=== PATIENT | male | born 1940 | race Caucasian/White ===

== ENCOUNTER 2016-11-06 20:33 | Emergency (ER) | payer MEDICARE ==
[~2016-11-06] VITALS: Ht 170.2 cm; Wt 77.0 kg
[2016-11-06] MEDS ORDERED: IV NORMAL SALINE 500ML 500 ML IV ONE (20:45)
[2016-11-06 21:05] LABS: BASO # 0.1 x10^3/uL (0.0-0.2); BASO % 1 % (0-3); EOS # 0.1 x10^3/uL (0.0-0.7); EOS % 2 % (0-3); HEMATOCRIT 42.6 % (39.0-53.0); HEMOGLOBIN 14.6 g/dL (13.0-17.5); LYMPH # 2.9 x10^3/uL (1.0-4.8); LYMPH % 38 % (24-48); MEAN CORPUSCULAR HEMOGLOBIN 29 pg (25-35); MEAN CORPUSCULAR HGB CONC 34 g/dL (31-37); MEAN CORPUSCULAR VOLUME 84 fL (79-100); MONO # 0.6 x10^3/uL (0.0-1.1); MONO % 8 % (0-9); NEUT # 3.9 x10^3uL (1.8-7.7); NEUT % 51 % (31-73); PLATELET COUNT 245 x10^3/uL (140-400); RED BLOOD COUNT 5.05 x10^6/uL (4.30-5.70); RED CELL DISTRIBUTION WIDTH 14.8 % (11.5-14.5); WHITE BLOOD COUNT 7.7 x10^3/uL (4.0-11.0)
--- NOTE | 2016-11-06 21:21 | RAD ---
CT HEAD AND CERVICAL SPINE WO dated 11/06/2016 8:54 PM Indication: Fall, headacheCODE STROKE, FALL, HYPERTENSION, SEVERE HEADACHE, ON BLOOD THINNERS, history of prior CVA Comparison: No comparison is available. Technique: Contiguous axial imaging the head was performed from skull base to vertex. No contrast administered. In addition, axial imaging of the cervical spine acquired with thin cut coronal and sagittal reconstruction. One or more of the following individualized dose reduction techniques were utilized for this examination: 1. Automated exposure control 2. Adjustment of the mA and/or kV according to patient size 3. Use of iterative reconstruction technique Findings: Ventricles and sulci are mildly prominent for age. No midline shift or mass effect. Brain parenchyma is of normal attenuation. No hemorrhage or extra axial collection. Posterior fossa and brainstem unremarkable. Visualized paranasal sinuses and mastoid air cells are clear. No apparent calvarial abnormality. Images of the cervical spine were acquired from skull base to T1. There is mild retrolisthesis of C3 on C4. Sagittal alignment is otherwise anatomic. Vertebral body heights are maintained. No prevertebral soft tissue swelling. Posterior elements are intact. There moderate hypertrophic change of the superior and inferior endplates throughout. Mild disc space narrowing at C3-C4 and C5-C6. Multilevel uncovertebral spurring and facet arthropathy. There is moderate bilateral foraminal stenosis at the C3-C4 level. Mild foraminal narrowing at the lower cervical levels. No large disc herniation. Visualized soft tissue structures unremarkable. Mild emphysematous change of the lung apices. IMPRESSION HEAD: 1. No evidence of acute intracranial hemorrhage or mass. 2. No CT evidence of acute infarct. If there is persistent clinical concern for evolving infarct, MRI could better evaluate. Impression cervical spine: 1. No evidence of fracture or malalignment. 2. Mild to moderate multilevel spondylosis. Electronically signed by: Mikel Hearn MD (11/06/2016 9:18 PM) [facility]
[2016-11-06 21:25] LABS: ALBUMIN 3.8 g/dL (3.4-5.0); CALCIUM 8.5 mg/dL (8.5-10.1); CREATININE 1.1 mg/dL (0.7-1.3); DIRECT BILIRUBIN 0.1 mg/dL (0.0-0.2); GFR 65.4; POTASSIUM 3.4 mmol/L (3.5-5.1); TOTAL BILIRUBIN 0.3 mg/dL (0.2-1.0); TOTAL PROTEIN 7.3 g/dL (6.4-8.2)
[2016-11-06 21:32] LABS: BILIRUBIN,URINE NEG (NEG); CLARITY,URINE CLEAR; COLOR,URINE YELLOW; GLUCOSE,URINE NEG (NEG); NITRITE,URINE NEG (NEG); UROBILINOGEN,URINE 0.2 mg/dL (0.2 mg/dL)
[2016-11-06 21:33] LABS: BACTERIA,URINE 0 /HPF (0-FEW); SQUAMOUS EPITHELIAL CELL,UR MOD /LPF
[2016-11-07 00:02] VITALS: BP 154/65
--- NOTE | 2016-11-07 00:27 | PHYS DOC ---
Past History Past Medical History: Anxiety, Asthma, CAD, COPD, Depression, High Cholesterol , Hypertension, [place], Prostatitis, Stroke Past Surgical History: Appendectomy Drug Use: None Adult General Chief Complaint Chief Complaint: HYPERTENSION HPI HPI 76-year-old male presenting to the emergency department after having a mechanical fall while trying to straight catheter himself and injuring his right elbow. He denies head injury or head trauma. He is currently on anticoagulation. He denies chest pain abdominal pain or hip pain. He was reportedly able to ambulate after the fall. Review of systems is negative for vision changes numbness weakness tingling difficulty breathing chest pain shortness of breath abdominal pain nausea vomiting. He denies polyuria dysuria. He reports chronic hypertension. All other review of systems is negative unless otherwise noted in history of present illness. ED course: 76-year-old male presenting to the emergency department with high blood pressure and a mechanical fall with injury to his right elbow. Pertinent physical examination findings showed no abrasions lacerations or ecchymosis of the right elbow. Patient has minimal pain with passive range of motion of the elbow. Palpable pulse distally with 2 second cap refill. General workup obtained which was otherwise unremarkable. I reviewed the elbow x-ray which showed mild effusion but was without obvious fracture. Patient did have anterior fat pad sign. Occult radial fracture suspected. Reexamination of the elbow shows very minimal pain and clinically is not suggestive of fracture. The patient was then discharged home to follow-up with his primary care physician in 2-3 days for repeat elbow examination and chronic hypertension management. Review of Systems Review of Systems SEE ABOVE Current Medications Current Medications Current Medications Medications (Trade) Dose Ordered Sig/Rui Start Time Stop Time Status Last Admin Dose Admin Sodium Chloride 500 ml @ 0 mls/hr 1X ONCE 11/06/16 20:45 11/06/16 20:51 DC 11/06/16 20:45 100 MLS/HR Allergies Allergies Allergies Coded Allergies Type Severity Reaction Last Updated Verified No Known Drug Allergies 11/06/16 No Physical Exam Physical Exam see above Constitutional: Well developed, well nourished, no acute distress, non-toxic appearance. [] HENT: Normocephalic, atraumatic, bilateral external ears normal, oropharynx moist, no oral exudates, nose normal. [] Eyes: PERRLA, EOMI, conjunctiva normal, no discharge. [] Neck: Normal range of motion, no tenderness, supple, no stridor. [] Cardiovascular:Heart rate regular rhythm, no murmur [] Lungs & Thorax: Bilateral breath sounds clear to auscultation [] Abdomen: Bowel sounds normal, soft, no tenderness, no masses, no pulsatile masses. [] Skin: Warm, dry, no erythema, no rash. [] Back: No tenderness, no CVA tenderness. [] Extremities: No tenderness, no cyanosis, no clubbing, ROM intact, no edema. [] see above Neurologic: Alert and oriented X 3, normal motor function, normal sensory function, no focal deficits noted. [] Psychologic: Affect normal, judgement normal, mood normal. [] Current Patient Data Vital Signs Vital Signs Date Time Temp Pulse Resp B/P (MAP) Pulse Ox O2 Delivery O2 Flow Rate FiO2 11/06/16 20:33 98.1 80 28 99 Room Air Lab Results Laboratory Tests Test 11/06/16 20:17 11/06/16 20:41 Urine Collection Type Unknown Urine Color Yellow Urine Clarity Clear Urine pH 5.5 Urine Specific [place] 1.020 Urine Protein Neg (NEG-TRACE) Urine Glucose (UA) Neg mg/dL (NEG) Urine Ketones (Stick) Neg mg/dL (NEG) Urine Blood Neg (NEG) Urine Nitrite Neg (NEG) Urine Bilirubin Neg (NEG) Urine Urobilinogen Dipstick 0.2 mg/dL (0.2 mg/dL) Urine Leukocyte Esterase Neg (NEG) Urine RBC 3-5 /HPF (0-2) Urine WBC 1-4 /HPF (0-4) Urine Squamous Epithelial Cells Mod /LPF Urine Bacteria 0 /HPF (0-FEW) Urine Mucus Mod /LPF White Blood Count 7.7 x10^3/uL (4.0-11.0) Red Blood Count 5.05 x10^6/uL (4.30-5.70) Hemoglobin 14.6 g/dL (13.0-17.5) Hematocrit 42.6 % (39.0-53.0) Mean Corpuscular Volume 84 fL (79-100) Mean Corpuscular Hemoglobin 29 pg (25-35) Mean Corpuscular Hemoglobin Concent 34 g/dL (31-37) Red Cell Distribution Width 14.8 % (11.5-14.5) H Platelet Count 245 x10^3/uL (140-400) Neutrophils (%) (Auto) 51 % (31-73) Lymphocytes (%) (Auto) 38 % (24-48) Monocytes (%) (Auto) 8 % (0-9) Eosinophils (%) (Auto) 2 % (0-3) Basophils (%) (Auto) 1 % (0-3) Neutrophils # (Auto) 3.9 x10^3uL (1.8-7.7) Lymphocytes # (Auto) 2.9 x10^3/uL (1.0-4.8) Monocytes # (Auto) 0.6 x10^3/uL (0.0-1.1) Eosinophils # (Auto) 0.1 x10^3/uL (0.0-0.7) Basophils # (Auto) 0.1 x10^3/uL (0.0-0.2) Sodium Level 139 mmol/L (136-145) Potassium Level 3.4 mmol/L (3.5-5.1) L Chloride Level 102 mmol/L (98-107) Carbon Dioxide Level 28 mmol/L (21-32) Anion Gap 9 (6-14) Blood Urea Nitrogen 10 mg/dL (8-26) Creatinine 1.1 mg/dL (0.7-1.3) Estimated GFR (Cockcroft-Gault) 65.4 Glucose Level 107 mg/dL (70-99) H Lactic Acid Level 2.0 mmol/L (0.4-2.0) Calcium Level 8.5 mg/dL (8.5-10.1) Total Bilirubin 0.3 mg/dL (0.2-1.0) Direct Bilirubin 0.1 mg/dL (0.0-0.2) Aspartate Amino Transferase (AST) 14 U/L (15-37) L Alanine Aminotransferase (ALT) 15 U/L (16-63) L Alkaline Phosphatase 89 U/L (46-116) Troponin I Quantitative < 0.017 ng/mL (0-0.055) Total Protein 7.3 g/dL (6.4-8.2) Albumin 3.8 g/dL (3.4-5.0) Lipase 126 U/L (73-393) EKG EKG [] Radiology/Procedures Radiology/Procedures [] Course & Med Decision Making Course & Med Decision Making Pertinent Labs and Imaging studies reviewed. (See chart for details) [] Dragon Disclaimer Dragon Disclaimer This chart was dictated in whole or in part using Voice Recognition software in a busy, high-work load, and often noisy Emergency Department environment. It may contain unintended and wholly unrecognized errors or omissions. Departure Departure: Impression: Primary Impression: Hypertension Additional Impression: Right elbow pain Disposition: HOME, SELF-CARE Condition: GUARDED Referrals: NON,STAFF (PCP) Patient Instructions: Managing Your High Blood Pressure Additional Instructions: Thank you for allowing us to participate in your care today. Followup with your primary care physician in 3 days if your symptoms do not improve. Call your Primary Doctor tomorrow and inform them of your visit today. If you do not have a primary care provider you can ask for a list of our primary care providers. Return to the emergency department you have any new or concerning findings. This should be evaluated by the primary care physician and any necessary consulting services for continued management within a few days after discharge. Return to emergency room if you have any new or concerning symptoms including but not limited to fever, chills, nausea, vomiting, intractable pain, any new rashes, chest pain, shortness of air, uncontrolled bleeding, difficulty breathing, and/or vision loss. Problem Qualifiers TEOFILO BYRD MD Nov 07, 2016 00:26
--- NOTE | 2016-11-07 02:27 | PHYS DOC ---
Past History Past Medical History: Anxiety, Asthma, CAD, COPD, Depression, High Cholesterol , Hypertension, [place], Prostatitis, Stroke Past Surgical History: Appendectomy Drug Use: None Adult General Chief Complaint Chief Complaint: HYPERTENSION HPI HPI Patient is a [age] year old [sex] who presents with [] Current Medications Current Medications Current Medications Medications (Trade) Dose Ordered Sig/Rui Start Time Stop Time Status Last Admin Dose Admin Sodium Chloride 500 ml @ 0 mls/hr 1X ONCE 11/06/16 20:45 11/06/16 20:51 DC 11/06/16 20:45 100 MLS/HR Allergies Allergies Allergies Coded Allergies Type Severity Reaction Last Updated Verified No Known Drug Allergies 11/06/16 No Current Patient Data Vital Signs Vital Signs Date Time Temp Pulse Resp B/P (MAP) Pulse Ox O2 Delivery O2 Flow Rate FiO2 11/06/16 20:33 98.1 80 28 99 Room Air Lab Results Laboratory Tests Test 11/06/16 20:17 11/06/16 20:41 Urine Collection Type Unknown Urine Color Yellow Urine Clarity Clear Urine pH 5.5 Urine Specific [place] 1.020 Urine Protein Neg (NEG-TRACE) Urine Glucose (UA) Neg mg/dL (NEG) Urine Ketones (Stick) Neg mg/dL (NEG) Urine Blood Neg (NEG) Urine Nitrite Neg (NEG) Urine Bilirubin Neg (NEG) Urine Urobilinogen Dipstick 0.2 mg/dL (0.2 mg/dL) Urine Leukocyte Esterase Neg (NEG) Urine RBC 3-5 /HPF (0-2) Urine WBC 1-4 /HPF (0-4) Urine Squamous Epithelial Cells Mod /LPF Urine Bacteria 0 /HPF (0-FEW) Urine Mucus Mod /LPF White Blood Count 7.7 x10^3/uL (4.0-11.0) Red Blood Count 5.05 x10^6/uL (4.30-5.70) Hemoglobin 14.6 g/dL (13.0-17.5) Hematocrit 42.6 % (39.0-53.0) Mean Corpuscular Volume 84 fL (79-100) Mean Corpuscular Hemoglobin 29 pg (25-35) Mean Corpuscular Hemoglobin Concent 34 g/dL (31-37) Red Cell Distribution Width 14.8 % (11.5-14.5) H Platelet Count 245 x10^3/uL (140-400) Neutrophils (%) (Auto) 51 % (31-73) Lymphocytes (%) (Auto) 38 % (24-48) Monocytes (%) (Auto) 8 % (0-9) Eosinophils (%) (Auto) 2 % (0-3) Basophils (%) (Auto) 1 % (0-3) Neutrophils # (Auto) 3.9 x10^3uL (1.8-7.7) Lymphocytes # (Auto) 2.9 x10^3/uL (1.0-4.8) Monocytes # (Auto) 0.6 x10^3/uL (0.0-1.1) Eosinophils # (Auto) 0.1 x10^3/uL (0.0-0.7) Basophils # (Auto) 0.1 x10^3/uL (0.0-0.2) Sodium Level 139 mmol/L (136-145) Potassium Level 3.4 mmol/L (3.5-5.1) L Chloride Level 102 mmol/L (98-107) Carbon Dioxide Level 28 mmol/L (21-32) Anion Gap 9 (6-14) Blood Urea Nitrogen 10 mg/dL (8-26) Creatinine 1.1 mg/dL (0.7-1.3) Estimated GFR (Cockcroft-Gault) 65.4 Glucose Level 107 mg/dL (70-99) H Lactic Acid Level 2.0 mmol/L (0.4-2.0) Calcium Level 8.5 mg/dL (8.5-10.1) Total Bilirubin 0.3 mg/dL (0.2-1.0) Direct Bilirubin 0.1 mg/dL (0.0-0.2) Aspartate Amino Transferase (AST) 14 U/L (15-37) L Alanine Aminotransferase (ALT) 15 U/L (16-63) L Alkaline Phosphatase 89 U/L (46-116) Troponin I Quantitative < 0.017 ng/mL (0-0.055) Total Protein 7.3 g/dL (6.4-8.2) Albumin 3.8 g/dL (3.4-5.0) Lipase 126 U/L (73-393) EKG EKG [] Radiology/Procedures Radiology/Procedures [] Course & Med Decision Making Course & Med Decision Making Pertinent Labs and Imaging studies reviewed. (See chart for details) [] Dragon Disclaimer Dragon Disclaimer This chart was dictated in whole or in part using Voice Recognition software in a busy, high-work load, and often noisy Emergency Department environment. It may contain unintended and wholly unrecognized errors or omissions. Departure Departure: Impression: Primary Impression: Hypertension Additional Impression: Right elbow pain Referrals: NON,STAFF (PCP) Problem Qualifiers TEOFILO BYRD MD Nov 07, 2016 02:27
--- NOTE | 2016-11-07 06:21 | EKG ---
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
--- NOTE | 2016-11-07 09:20 | RAD ---
Examination: 3 views of the right elbow History: History of fall, right elbow pain. Comparison: None available Findings: The alignment of the elbow joint grossly appears unremarkable. There is minimal prominent appearing anterior fat pad sign. An obvious fracture line is not visualized. Impression: 1. No obvious fracture line is identified, however there is minimal prominent of anterior fat pad sign which may suggest occult fracture. Recommend follow-up radiograph in 5-7 days.
--- NOTE | 2016-11-07 09:27 | RAD ---
EXAM: CHEST 1 VIEW History: Fall COMPARISON: None available. TECHNIQUE: Single portable radiograph of the chest FINDINGS: The cardiac silhouette is unremarkable. The lungs are clear bilaterally. Minimal blunting of the right costophrenic angle likely pleural thickening or trace effusion. IMPRESSION: Minimal blunting of the right costophrenic angle likely pleural thickening or trace effusion.
== END 2016-11-07 00:34 | disposition home or self-care (01) ==
LOC: ER 20:33
DX: M25.521 Pain in right elbow (principal); I10 Essential (primary) hypertension; E78.00 Pure hypercholesterolemia, unspecified; I25.10 Atherosclerotic heart disease of native coronary artery without angina pectoris; J44.9 Chronic obstructive pulmonary disease, unspecified; I25.2 Old myocardial infarction; Z86.73 Personal history of transient ischemic attack (TIA), and cerebral infarction without residual deficits; W19.XXXA Unspecified fall, initial encounter; Y93.89 Activity, other specified; Y99.8 Other external cause status; Y92.89 Other specified places as the place of occurrence of the external cause
CPT/HCPCS: 36415; 70450; 71010; 72125; 73080; 80048; 80076; 81001; 83605; 83690; 84484; 85025; 93005; 96360; 96361; 99285; J7040; P9612

== ENCOUNTER 2017-12-14 13:54 | Observation (INO) | payer MEDICARE, OTHER ==
[~2017-12-14] VITALS: Ht 171.4 cm; Wt 70.4 kg
--- NOTE | 2017-12-14 14:16 | RAD ---
CT of the head without contrast, 12/14/2017: HISTORY: Left-sided weakness Comparison is made to a study from 11/06/2016. There is mild cerebral atrophy. The ventricles are within normal limits in size. There is no shift of the midline structures. There is no evidence of acute intracranial hemorrhage or mass effect. IMPRESSION: No acute intracranial abnormality is detected. Note: The findings were called to personnel in the [facility] ER at 2:12 PM on 12/14/2017. Electronically signed by: Baltazar Pierre MD (12/14/2017 2:12 PM) [facility]
[2017-12-14 14:34] LABS: HEMATOCRIT 44.3 % (39.0-53.0); HEMOGLOBIN 15.1 g/dL (13.0-17.5); RED BLOOD COUNT 5.15 x10^6/uL (4.30-5.70); RED CELL DISTRIBUTION WIDTH 14.3 % (11.5-14.5); WHITE BLOOD COUNT 6.5 x10^3/uL (4.0-11.0)
--- NOTE | 2017-12-14 14:35 | PHYS DOC ---
Past History Past Medical History: Anxiety, Asthma, CAD, COPD, Depression, High Cholesterol , Hypertension, [place], Prostatitis, Stroke Past Surgical History: Appendectomy Alcohol Use: Occasionally Drug Use: None Adult General Chief Complaint Chief Complaint: NEURO SYMPTOMS/DEFICITS [facility] HPI 77-year-old male presents via EMS for concern of stroke. Patient was at his care facility eating some lunch when he began to have a choking episode. The last thing he remembers until he woke up on the floor. EMS was called by the person cleaning his home who witnessed the choking and syncopal event. When he woke up the patient states that the cleaning lady was very upset and wanted him checked out. He doesn't remember much besides this. EMS found the patient to have left-sided weakness. Patient states that he has had a previous stroke with left-sided weakness but is not sure if weakness is worse today or not. He is usually ambulatory. He admits to a tingling sensation with feels like his arm was going to sleep on the left arm. He denies any difficulty with word finding or understanding people are saying. He denies fever or chills. Review of Systems Review of Systems Constitutional: Denies fever or chills [] Eyes: Denies change in visual acuity, redness, or eye pain [] HENT: Denies nasal congestion or sore throat [] Respiratory: Denies cough or shortness of breath [] Cardiovascular: No additional information not addressed in HPI [] GI: Denies abdominal pain, nausea, vomiting, bloody stools or diarrhea [] : Denies dysuria or hematuria [] Musculoskeletal: Denies back pain or joint pain [] Integument: Denies rash or skin lesions [] Neurologic: Mild headache, left-sided weakness[] Endocrine: Denies polyuria or polydipsia [] All other systems were reviewed and found to be within normal limits, except as documented in this note. Allergies Allergies Allergies Coded Allergies Type Severity Reaction Last Updated Verified No Known Drug Allergies 11/06/16 No Physical Exam Physical Exam Constitutional: Well developed, well nourished, no acute distress, non-toxic appearance. [] HENT: Normocephalic, atraumatic, bilateral external ears normal, oropharynx moist, no oral exudates, nose normal. [] Eyes: PERRLA, EOMI, conjunctiva normal, no discharge. [] Neck: Normal range of motion, no tenderness, supple, no stridor. [] Cardiovascular:Heart rate regular rhythm, no murmur [] Lungs & Thorax: Bilateral breath sounds clear to auscultation [] Abdomen: Bowel sounds normal, soft, no tenderness, no masses, no pulsatile masses. [] Skin: Warm, dry, no erythema, no rash. [] Back: No tenderness, no CVA tenderness. [] Extremities: No tenderness, no cyanosis, no clubbing, ROM intact, no edema. [] Neurologic: Alert and oriented X 3, normal sensory function, 3 out of 5 strength in the left upper and left lower extremity, symmetrical face, no obvious speech deficits or word finding difficulty. [] Psychologic: Affect normal, judgement normal, mood normal. [] Current Patient Data Vital Signs Vital Signs Date Time Temp Pulse Resp B/P (MAP) Pulse Ox O2 Delivery O2 Flow Rate FiO2 12/14/17 14:08 98.1 84 18 96 Room Air EKG EKG [] Radiology/Procedures Radiology/Procedures [] Impressions: CT of the head without contrast, 12/14/2017: HISTORY: Left-sided weakness Comparison is made to a study from 11/06/2016. There is mild cerebral atrophy. The ventricles are within normal limits in size. There is no shift of the midline structures. There is no evidence of acute intracranial hemorrhage or mass effect. IMPRESSION: No acute intracranial abnormality is detected. Note: The findings were called to personnel in the [facility] ER at 2:12 PM on 12/14/2017. Electronically signed by: Baltazar Pierre MD (12/14/2017 2:12 PM) [facility] DICTATED AND SIGNED BY: BALTAZAR PIERRE MD DATE: 12/14/17 1409 CC: ANDRZEJ GRIDER DO; NON,STAFF ~ CHEST AP ONLY History: PORTABLE CHEST XRAY syncope. Comparison: 11/06/2016 Cardiomediastinal silhouette: Stable Lungs: No focal airspace consolidation. Pleura: No evidence of pleural effusion. Pneumothorax: None visualized Hyperexpansion of both lungs compatible with emphysema. Impression: No acute radiographic findings. Electronically signed by: Mikel Key MD (12/14/2017 2:39 PM) [id number] DICTATED AND SIGNED BY: MIKEL KEY MD DATE: 12/14/17 1437 CC: ANDRZEJ GRIDER DO; EVER,STAFF Course & Med Decision Making Course & Med Decision Making Pertinent Labs and Imaging studies reviewed. (See chart for details) Given the patient's weakness, a code stroke was called. The patient's head CT did not show an acute bleed. The patient is on Plavix. He does have left sided weakness, but I am uncertain if this is significantly different than his previous. I do not believe in the circumstances, the patient qualifies for TPA even though he is within the treatment window. Labs are pending. His labs are unremarkable. His chest x-ray is unremarkable. I do believe the patient should have further observation in the hospital. The patient agrees with this plan. I discussed the patient with Dr. Jurado and he has accepted the patient for admission. 35 minutes of critical care time was spent on this patient. This is exclusive of any other separate, billable procedures. [] Dragon Disclaimer Dragon Disclaimer This electronic medical record was generated, in whole or in part, using a voice recognition dictation system. Departure Departure: Referrals: EVERSTAFF (PCP) ANDRZEJ GRIDER DO Dec 14, 2017 14:35
--- NOTE | 2017-12-14 14:42 | RAD ---
CHEST AP ONLY History: PORTABLE CHEST XRAY syncope. Comparison: 11/06/2016 Cardiomediastinal silhouette: Stable Lungs: No focal airspace consolidation. Pleura: No evidence of pleural effusion. Pneumothorax: None visualized Hyperexpansion of both lungs compatible with emphysema. Impression: No acute radiographic findings. Electronically signed by: Mikel Key MD (12/14/2017 2:39 PM) [facility]
[2017-12-14 14:43] LABS: GFR 72.8
--- NOTE | 2017-12-14 15:44 | EKG ---
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
[2017-12-14 16:59] VITALS: BP 126/82
[2017-12-14] MEDS ORDERED: ALBU18HF IH (18:33)
[2017-12-14] MEDS ORDERED: ATORVASTATIN CA80 MG PO (18:33)
[2017-12-14] MEDS ORDERED: IPRA3AMP29 NEB ×2 (18:33)
[2017-12-14] MEDS ORDERED: CARB15DR3 EACHEYE (18:33)
[2017-12-14] MEDS ORDERED: ASPI81TA50 PO (18:33)
[2017-12-14] MEDS ORDERED: HYDR30CR70 TP (18:41)
[2017-12-14] MEDS ORDERED: ERGO500027 PO (18:41)
[2017-12-14] MEDS ORDERED: SENN-37 PO (18:41)
[2017-12-14] MEDS ORDERED: FOLI1TAB16 PO (18:41)
[2017-12-14] MEDS ORDERED: ISOS60TA2 PO (18:41)
[2017-12-14] MEDS ORDERED: HYDR59LO TP (18:41)
[2017-12-14] MEDS ORDERED: CYAN10002 IM (18:41)
[2017-12-14] MEDS ORDERED: KETO15CR2 TP (18:42)
[2017-12-14 18:48] VITALS: BP 132/85
--- NOTE | 2017-12-14 19:02 | HP ---
ADMIT DATE: 12/14/2017 HISTORY OF PRESENT ILLNESS: The patient is a 77-year-old male patient, who was brought to the Emergency Room via emergency medical service personnel for concern of stroke. The patient was at his care facility, eating some lunch when he began to have choking episode. The last thing he remembers until he woke up on the floor, EMS were called by the person cleaning his home, who witnessed choking and syncopal event when he woke up and the patient states that the cleaning lady was very upset and wanted him checked out. He does not remember much beside this. EMS found the patient to have left-sided weakness. He stated that he has had a previous stroke with left-sided weakness, but is not sure if weakness is worse today or not. He is usually ambulatory. He admits to a tingling sensation, which feels in his arm as if his arms going to sleep. He denied any difficulty with word finding or understanding what people are saying. He was extensively evaluated in the Emergency Room. He had a CT scan of the head without contrast, which basically showed that compared to another CT scan done last year that there is mild cerebral atrophy. The ventricles are within normal limits in size. There is no shift of the midline structure. There is no evidence of acute intracranial hemorrhage or mass effect. His chest x-ray was also unremarkable with no focal airspace consolidation. No evidence of pleural effusion or pneumothorax. He has hyperexpansion, both lungs compatible with emphysema. The patient was admitted for further evaluation and to consult Dr. Diaz. The ER physician made determination that the patient, although the patient qualifies for TPA and he does not believe in the circumstances that he should receive the treatment. When I saw him, the patient was awake, alert, responding appropriately. In fact, he was eating his dinner without any problem. PAST MEDICAL HISTORY: Significant for coronary artery disease, chronic obstructive pulmonary disease, hypertension, hyperlipidemia, history of myocardial infarction, stroke, prostatitis, asthma, anxiety and depression. PAST SURGICAL HISTORY: Significant for appendectomy. ALLERGIES: HE IS ALLERGIC TO CARVEDILOL, ELEMENTAL MERCURY, METOPROLOL, STRAWBERRY, AND TETANUS TOXOIDS ADSORBED. MEDICATIONS: He is currently on following medications: He is on albuterol/ipratropium bromide 4 times a day, aspirin 81 mg once a day, atorvastatin calcium 80 mg at bedtime, artificial tears 1 drop to both eyes 4 times a day, Plavix 75 mg once a day, cyanocobalamin 1000 mcg/mL intramuscularly once a month. He is on Senna S two tablets twice a day, ergocalciferol, vitamin D2 50,000 international unit once a week, folic acid 1 mg once a day, hydrocortisone 1% cream applied topically twice a day for itching, hydrocortisone 2.5% cream with applicator to use to a small amount into the rectum with twice a day as needed, isosorbide mononitrate 60 mg once a day, ketoconazole 2% cream, ketaconazole 2% shampoo 3 times a week, mirtazapine 30 mg at bedtime, nicotine 2 mg gum chew 1 piece in the mouth every 4 hours as needed, Ensure nutritional supplement with strawberry 1 can once a day, olanzapine 10 mg at bedtime, olodaterol 2 puffs by oral inhalation once a day, prazosin 1 mg take 1 tablet by mouth at bedtime, Prednisolone Acetate 1% ophthalmic suspension one drop to the left eye 4 times a day. He is also on sertraline 100 mg [id number] tablet at bedtime. He is on sodium chloride 5% ophthalmic ointment apply thin ribbon to both eyes at bedtime for the eye dryness. He is on codeine in liquid form take 1 teaspoon by mouth 4 times a day as needed for dry cough, dexamethasone 0.1% ophthalmic ointment apply thin ribbon to the left eye at bedtime, amlodipine 10 mg once a day, pantoprazole 40 mg once a day. He has urinary retention for which he self-catheterized 4 times a day. He is also on dicyclomine 20 mg 4 times a day, nitroglycerin 0.4 mg sublingually 5 minutes x 3, ondansetron 4 mg once a day, polyethylene glycol 17 grams daily for constipation, simethicone 80 mg once a day as needed. FAMILY HISTORY: Unremarkable. SOCIAL HISTORY: He apparently lives alone. He does not smoke. Drinks alcohol occasionally. REVIEW OF SYSTEMS: As per history of present illness. PHYSICAL EXAMINATION GENERAL: When I examined him, he was resting slightly, propped up in bed, in no apparent respiratory distress, pale, but no jaundice, cyanosis, or thyromegaly. No jugular venous distension. No limb edema. VITAL SIGNS: His heart rate was 70, blood pressure was 126/82, temperature was 97.6, respiratory rate was 20, and oxygen saturation was 97%. HEAD, EYES, EARS, NOSE AND THROAT: Showed normocephalic, atraumatic. NECK: Supple. HEART: Showed normal first and second heart sounds with no gallop, rub or murmur. CHEST: Clear to auscultation. No crepitation or rhonchi. ABDOMEN: Distended, soft, nontender. No guarding or rigidity. No organomegaly. All hernial orifice intact. Bowel sounds normal. NEUROLOGIC: He was awake, alert, responding appropriately. Cranial nerves intact. EXTREMITIES: He moves extremities without difficulty. LABORATORY DATA: Showed his white cell count was 6500, hemoglobin 15, hematocrit 44, MCV 86 and platelet count 239,000. Serum sodium was 135, potassium 4, chloride 99, bicarbonate 30, anion gap of 6, BUN 11, creatinine 1, estimated GFR was 72 mL per minute, his glucose was 102, calcium was 9. Prothrombin time was 10.4, INR of 1, aPTT was 25. His CT scan of the head showed that there is mild cerebral atrophy. The ventricles are within normal limits in size. There is no shift of the midline structure. There is no evidence of acute intracranial hemorrhage or mass effect. His chest x-ray showed that the cardiomediastinal silhouette stable, stable lungs, no focal airspace consolidation, no evidence of pleural effusion or pneumothorax visualized. He has hyperexpansion of both lungs compatible with emphysema. ASSESSMENT AND PLAN: In summary, this is a 77-year-old male patient, who was brought in with questionable stroke with left-sided weakness, superimposed perhaps on a previous stroke. He has also some tingling in his left upper extremity that has resolved. I will check his bilateral carotid Doppler ultrasound. Consult Dr. Diaz. We will check his fasting lipid profile. Continue all his medication and also get the physical and occupational therapy to evaluate the patient. BERT BRADSHAW MD DR: NATALIE/whit JOB#: [id number] / [id number]
[2017-12-14] MEDS ORDERED: HYDROCORTISONE 2.5% RECTAL CREAM 30GM TUBE. RC PRN (19:15)
[2017-12-14] MEDS ORDERED: ALBUTEROL SULFATE 8GM INHALER. IH PRN (19:15)
[2017-12-14] MEDS ORDERED: IPRATRPIUM/ALBUTEROL 0.5/2.5MG 3 ML NEBU. NEB PRN (19:15)
[2017-12-14] MEDS ORDERED: KETOCONAZOLE 2% TOPICAL CREAM 30GM TUBE. TP PRN (19:15)
[2017-12-14] MEDS ORDERED: NITROGLYCERIN SUBLINGUAL 0.4 MG BOTTLE OF 25. SL PRN (19:15)
[2017-12-14] MEDS ORDERED: SIMETHICONE 80 MG TAB.CHEW PO PRN (19:15)
[2017-12-14] MEDS ORDERED: OLAN10TA9 PO (19:39)
[2017-12-14] MEDS ORDERED: DICY20TA3 PO (19:39)
[2017-12-14] MEDS ORDERED: OLOD4MIS2 IH (19:39)
[2017-12-14] MEDS ORDERED: SIME80TA14 PO (19:39)
[2017-12-14] MEDS ORDERED: POLY17PO5 PO (19:39)
[2017-12-14] MEDS ORDERED: MIRT30TA3 PO (19:39)
[2017-12-14] MEDS ORDERED: ONDA4TAB11 PO (19:39)
[2017-12-14] MEDS ORDERED: KETO120S2 TP (19:39)
[2017-12-14] MEDS ORDERED: CLOP75TA57 PO (19:39)
[2017-12-14] MEDS ORDERED: NICO2GUM42 BC (19:39)
[2017-12-14] MEDS ORDERED: PRAZ1CAP2 PO (19:39)
[2017-12-14] MEDS ORDERED: AMLO10TA6 PO (19:39)
[2017-12-14] MEDS ORDERED: NITR0.4T22 SL (19:39)
[2017-12-14] MEDS ORDERED: SERT100T PO (19:39)
[2017-12-14] MEDS ORDERED: SENN1TAB8 PO (19:39)
[2017-12-14] MEDS ORDERED: PANT40TA5 PO (19:39)
[2017-12-14] MEDS ORDERED: ALBUTEROL SULFATE 2.5 MG/3 ML NEBU. NEB PRN (20:15)
[2017-12-14] MEDS ORDERED: ONDANSETRON ODT 4 MG TAB.RAPDIS PO PRN (20:15)
[2017-12-14] MEDS ORDERED: DICYCLOMINE HCL 20 MG TABLET PO PRN (20:15)
[2017-12-14] MEDS ORDERED: POLYVINYL ALCOHOL/POVIDONE/PF OPHTH SOLUTION DROPERETTE. OU PRN (20:15)
[2017-12-14] MEDS ORDERED: NICOTINE POLACRILEX GUM 2 MG GUM. BC PRN (20:15)
[2017-12-14] MEDS: SENNOSIDES/DOCUSATE 8.6/50MG TABLET. PO SCH (21:00)
[2017-12-14] MEDS ORDERED: PRAZOSIN 1 MG CAPSULE. PO SCH (21:00)
[2017-12-14] MEDS ORDERED: OLANZapine 10 MG TABLET PO SCH (21:00)
[2017-12-14] MEDS ORDERED: NON FORMULARY ITEM (Hydrocortisone 1 APP) TP SCH (21:00)
[2017-12-14] MEDS ORDERED: ATORVASTATIN CALCIUM 20 MG TABLET PO SCH (21:00)
[2017-12-14] MEDS ORDERED: MIRTAZAPINE 30 MG TABLET PO SCH (21:00)
[2017-12-14] MEDS ORDERED: SENNOSIDES/DOCUSATE 8.6/50MG TABLET. PO SCH (21:00)
[2017-12-14 22:18] VITALS: BP 121/74
--- NOTE | 2017-12-15 02:37 | CONS ---
DATE OF CONSULTATION: 12/14/2017 REFERRING PHYSICIAN: Dr. Jurado. REASON FOR CONSULTATION: Rule out stroke. HISTORY OF PRESENT ILLNESS: This is a 77-year-old right-handed male who is known to have history of stroke resulted in left hemiparesis, has been in his usual state of health until this morning when he was at home eating and all of a sudden, he developed a choking episode, ended up with a syncopal episode, witnessed by a cleaning lady at his home. EMS was activated and found the patient has to have left-sided weakness; however, it was not clear whether the weakness has been worse than it has been before secondary to old stroke. Therefore, he was admitted through Emergency Room for further evaluation. The patient denies any headaches, visual disturbances, nausea, vomiting, chest pain, shortness of breath or palpitations. He did not recall the event at home. He woke up and on the floor. The patient stated that he is almost back to his previous baseline. He denies headaches, visual disturbances, nausea, vomiting, chest pain, shortness of breath or palpitation, dysarthria, or dysphagia. He does complain of left-sided weakness and paresthesia. PAST MEDICAL HISTORY: Significant for stroke resulted in left hemiparesis, required extensive physical therapy, history of hypertension, hyperlipidemia, COPD, arthritis, asthma, anxiety and depressions and coronary artery disease, status post myocardial infarction. PAST SURGICAL HISTORY: Significant for appendectomy. SOCIAL HISTORY: The patient lives independently alone. Denies smoking. No alcohol drinking. He drinks alcohol occasionally. He denies illegal drug use. FAMILY HISTORY: Noncontributory. REVIEW OF SYSTEMS: A 10-point review of system was performed as mentioned above in the history of present illness consistent with left-sided chest weakness. Otherwise, unremarkable. CURRENT HOME MEDICATIONS: Isosorbide 60 mg daily, folic acid 1 mg daily, amlodipine 10 mg p.o. daily, Zoloft 50 mg p.o. daily, albuterol inhaler, Plavix 75 mg daily, aspirin 81 mg daily, Protonix 40 mg daily, Minipress 1 mg at bedtime, olanzapine 10 mg at bedtime, Lipitor 80 mg at bedtime, mirtazapine 30 mg at bedtime, albuterol inhaler, Bentyl 20 mg q.i.d. p.r.n., nitroglycerin 0.4 sublingual p.r.n. ALLERGIES: CARVEDILOL, METOPROLOL, TETANUS TOXOID, and ____. PHYSICAL EXAMINATION: GENERAL: Well-developed, well-nourished male, not in acute distress. He weighs 156 pounds. VITAL SIGNS: Blood pressure 121/74, respiratory rate 24, pulse is 79 and regular, temperature 97.7, oxygen saturation is 97% on room air. HEENT: Normocephalic, atraumatic, otherwise unremarkable. NECK: Supple. Negative for carotid bruit, lymphadenopathy, JVD or thyromegaly. LUNGS: Clear to A and P. CARDIOVASCULAR: Regular rate and rhythm, normal S1, S2. ABDOMEN: Soft. Bowel sounds positive. EXTREMITIES: Negative for cyanosis, clubbing or pitting edema. NEUROLOGIC: MENTAL STATUS: The patient is alert and oriented x 3. Speech is fluent. There is no language dysfunction. The patient recalls 2/3 immediately and 1 mL of 73 minutes. Judgment abstract and thinking are normal. The patient denies hallucination or delusion. CRANIAL NERVES: Visual fiore are full. The pupils are reactive to light and accommodation. The extraocular movements are intact. There is no nystagmus. There is no facial motor or sensory deficit. Hearing is intact bilaterally. The palate is elevated symmetrically. Sternocleidomastoid muscles are powerful bilaterally. The patient shrugs her shoulders symmetrically, protrudes her tongue in the midline without fasciculation or atrophy. MOTOR: No focal muscle bulk was seen. The tone is normal. The strength is 4/5 in the left upper and lower extremities. Otherwise, the strength is 5/5 throughout. Sensory examination elsewhere. SENSORY: Examination revealed normal pinprick, light touch, vibratory and position senses. Deep tendon reflexes were symmetric and high symmetric and active with a symmetric and active with a positive Babinski on the left side. Gait not tested at this time. The coordination is normal. LABORATORY DATA: CBC revealed white blood cells of 6500, hemoglobin 15.1, hematocrit 44.3, platelet count 239,000. Chemistry revealed sodium of 135, potassium 4, chloride 109, CO2 of 23, BUN 11, creatinine 1, glucose is 102, and calcium 9. ____ normal. DIAGNOSTIC DATA: Nonenhanced CT scan revealed no evidence of acute intracranial process, otherwise unremarkable. Chest x-ray, no acute cardiopulmonary process. IMPRESSION: 1. Longstanding history of stroke resulted in left hemiparesis of moderate residual otherwise no evidence of acute stroke as the patient stated he is back to his previous baseline. 2. Multiple medical problems include hypertension, hyperlipidemia, gastroesophageal reflux disease, depression, anxiety, coronary artery disease, and prostatitis. RECOMMENDATIONS: 1. Continue with current management initiated by Dr. Jurado including aspirin and Plavix. 2. PT/OT. 3. Agree with a carotid Doppler study if it has not been done recently. M Adelina KEARNS MD DR: BRIAN/whit JOB#: [id number] / [id number]
[2017-12-15 05:04] VITALS: BP 104/65
[2017-12-15] MEDS ORDERED: PANTOPRAZOLE 40 MG TABLET. PO SCH (07:30)
[2017-12-15] MEDS ORDERED: ASPIRIN ENTERIC COATED 81 MG TABLET.DR. PO SCH (08:00)
[2017-12-15] MEDS ORDERED: IPRATRPIUM/ALBUTEROL 0.5/2.5MG 3 ML NEBU. NEB SCH (09:00)
[2017-12-15] MEDS ORDERED: ISOSORBIDE MONONITRATE ER 30 MG TAB.ER.24H PO SCH (09:00)
[2017-12-15] MEDS ORDERED: SERTRALINE 50 MG TABLET. PO SCH (09:00)
[2017-12-15] MEDS ORDERED: POLYETHYLENE GLYCOL 3350 17 GM PACKET. PO PRN (09:00)
[2017-12-15] MEDS ORDERED: CLOPIDOGREL BISULFATE 75 MG TABLET PO SCH (09:00)
[2017-12-15] MEDS ORDERED: KETOCONAZOLE 2% SHAMPOO 120ML BOTTLE. TP SCH (09:00)
[2017-12-15] MEDS ORDERED: NON FORMULARY ITEM (Olodaterol HCl (Striverdi Respimat) 2 PUFF) IH SCH (09:00)
[2017-12-15] MEDS ORDERED: amLODIPine BESYLATE 10 MG TABLET PO SCH (09:00)
[2017-12-15] MEDS ORDERED: FOLIC ACID 1 MG TABLET PO SCH (09:00)
[2017-12-15] MEDS: SENNOSIDES/DOCUSATE 8.6/50MG TABLET. PO SCH (09:42)
[2017-12-15 11:16] VITALS: BP 115/72
--- NOTE | 2017-12-15 13:00 | RAD ---
Carotid ultrasound, 12/15/2017: History: Left-sided weakness, slurred speech Duplex evaluation of the carotid arteries in the neck was performed including grayscale, color-flow and spectral Doppler analysis. There are moderate scattered calcified plaques in the common carotid arteries and at both carotid bifurcations. These partially obscure the underlying carotid lumen. The peak systolic velocity in the proximal right internal carotid artery is 133 cm/s with an end-diastolic velocity of 42 cm/s and an internal carotid to common carotid artery ratio of 2.3. These Doppler findings suggest luminal narrowing in the 50-70% diameter range. On the left, the peak systolic velocity in the internal carotid artery is 120 cm/s with an end-diastolic velocity of 32 cm/s and internal carotid to common carotid artery ratio 1.7. These Doppler findings suggest luminal narrowing in the 0-50% diameter range, probably closer to the 50% level. Antegrade flow is identified in the left vertebral artery. The right vertebral artery was not visualized. IMPRESSION: 1. Moderate calcific plaquing at both carotid bifurcations with underlying luminal narrowing of the proximal right internal carotid artery in the 50-70% diameter range and narrowing of the proximal left internal carotid artery in the 0-50% diameter range. 2. Nonvisualization of the right vertebral artery suggesting occlusion or hypoplasia, although alternatively this could be on a technical basis. Note: Stenosis calculations for CTA, MRA and conventional angiography are based upon determination of the distal ICA diameter in accordance with the NASCET methodology. Stenosis calculations for Doppler studies are derived from validated velocity criteria which are known to correlate with NASCET methodology of determining stenosis.
--- NOTE | 2017-12-15 14:26 | DS ---
DATE OF DISCHARGE: 12/15/2017 HOSPITAL COURSE: The patient is resting, slightly propped up in bed, no apparent distress. He has no further episodes of tingling and numbness in left side. He is up and about, back to his baseline. He was seen by Dr. Diaz. He does not think that he has new stroke. We did bilateral carotid Doppler ultrasound, which showed that the patient has moderate calcific plaquing at both carotid bifurcation, has an underlying luminal narrowing of the proximal right internal carotid artery in 50-70% diameter range and narrowing of the proximal left internal carotid artery and 0-50% diameter range. Nonvisualization of the right vertebral artery suggesting occlusion or hypoplasia, although alternatively this could be on technical basis and as the patient remained stable, he is already on Plavix and aspirin. Decision was made to discharge him back to his home with home health. Obviously, he will probably need to be investigated further by his primary care physician at the [facility] with CT angio and probably once the narrowing worsens he might require carotid endarterectomy. PHYSICAL EXAMINATION: GENERAL: When I saw him today he looked well and was clearly in no apparent respiratory distress, pale, but no jaundice, cyanosis, or thyromegaly. No jugular venous distension. No limb edema. VITAL SIGNS: His heart rate was 70, blood pressure 115/72, temperature was 97.8, respiratory rate was 18 and oxygen saturation was 96%. HEAD, EYES, EARS, NOSE AND THROAT: Normocephalic, atraumatic. NECK: Supple. HEART: Showed normal first and second heart sounds with no gallop, rub or murmur. CHEST: Clear to auscultation. No crepitation or rhonchi. ABDOMEN: Distended, soft, nontender. No guarding or rigidity. No organomegaly. All hernial orifice intact. Bowel sounds normal. NEUROLOGIC: He is awake, alert, responding appropriately. All cranial nerves intact. He moves extremities without difficulty. His intake was 460, output was 50. LABORATORY DATA: Showed white cell count 6200, hemoglobin 15, hematocrit 44, MCV 86 and platelet count 239,000. His serum sodium was 135, potassium 4, chloride 99, bicarbonate 30, anion gap of 6, BUN 11, creatinine 1, estimated GFR was 72 mL per minute, his glucose was 102, calcium was 9. C-reactive protein was 2.6. His sed rate was only 22 mm per hour. Prothrombin time was 10.4, INR of 1, aPTT was 25. His CT scan of the head was unremarkable and showed no acute intracranial abnormalities detected. His chest x-ray was unremarkable and his carotid Doppler ultrasound showed luminal narrowing of the proximal right internal carotid artery and 50-70% diameter range and the proximal left internal carotid artery 0-50% diameter range. DISCHARGE MEDICATIONS: He was discharged home to continue albuterol sulfate 1 puff every 4 hours, amlodipine 10 mg once a day, aspirin 81 mg once a day, atorvastatin calcium 80 mg at bedtime, carboxymethyl cellulose 1 drop for each eye 4 times a day, Plavix 75 mg daily, cyanocobalamin 1000 mcg/mL intramuscular once a month, dicyclomine 20 mg 4 times a day as needed, vitamin D2 50,000 international units every 2 weeks, folic acid 1 mg once a day, hydrocortisone lotion applied topically as needed, hydrocortisone applied rectally twice a day, ipratropium bromide, albuterol inhaler for DuoNeb 3 mL by nebulizer 4 times a day, isosorbide mononitrate 60 mg once a day, ketoconazole cream applied topically for facial itching, ketaconazole shampoo 3 times per week, mirtazapine 30 mg at bedtime, nicotine gum 2 mg every hour as needed, nitroglycerin 0.4 mg sublingually every 5 minutes x 3, olanzapine 10 mg at bedtime, olodaterol 4 grams 2 puffs daily, Protonix 40 mg once a day, polyethylene glycol 17 grams daily, prazosin 1 mg at bedtime, Senna S 2 tablets twice a day, sertraline 100 mg he takes half a tablet daily and simethicone 80 mg he takes 40 mg daily p.r.n. for gas and bloating. FINAL DISCHARGE DIAGNOSES: Left-sided hemiparesis longstanding with moderate residual deficit, but no acute stroke, hypertension, hyperlipidemia, gastroesophageal reflux disease, depression, anxiety, coronary artery disease and prostatitis. BERT BRADSHAW MD DR: NATALIE/whit JOB#: [id number] / [id number]
--- NOTE | 2017-12-15 20:17 | PN ---
DATE: REFERRING PHYSICIAN: Maggie Jurado MD SUBJECTIVE: The patient denies any new medical neurological complaints. He denies headaches, visual disturbances, dysarthria, dysphagia or vertigo. OBJECTIVE: GENERAL: Well-developed, well-nourished male, not in acute distress. VITAL SIGNS: Blood pressure 104/65, respiratory rate 20, pulse is 70 regular, temperature 97.7, oxygen saturation 97% on room air. HEENT: Normocephalic, atraumatic, otherwise unremarkable. NECK: Supple. Negative for carotid bruit, lymphadenopathy, JVD or thyromegaly. LUNGS: Clear to A and P. CARDIOVASCULAR: Regular rate and rhythm, normal S1, S2. There is no S3, S4 or murmur. ABDOMEN: Soft. Bowel sounds positive. EXTREMITIES: Negative for cyanosis, clubbing or pitting edema. NEUROLOGICAL EXAM: Mental Status: The patient is alert and oriented x 3. The speech is fluent. There is no language dysfunction. Memory, judgment, and abstract thinking are normal. The patient denies hallucination, normal for his age. The patient denies hallucination or delusion. Cranial nerves are intact. Cranial nerves are intact. Motor examination revealed mild left hemiparesis, probably due to previous stroke. The strength elsewhere was 5/5 throughout. Sensory examination revealed normal pinprick and light touch, vibratory and position senses. Deep tendon reflexes were symmetric with positive Babinski on the left side. Gait not tested. The coordination is normal. IMAGING STUDIES: A carotid Doppler study is pending. IMPRESSION: 1. Left-sided weakness and possible mild exacerbation, rule out transient ischemic attack. 2. History of stroke resulted in mild left hemiparesis. 3. Multiple medical problems include hypertension, hyperlipidemia, gastroesophageal reflux disease, depression, anxiety and coronary artery disease and bursitis. RECOMMENDATIONS: 1. Await for carotid Doppler study result. 2. PT, OT. 3. Continue with current management initiated by Dr. Jurado. 4. The patient is neurologically stable. M Adelina KEARNS MD DR: BRIAN/whit JOB#: [id number] / [id number]
== END 2017-12-15 14:30 | disposition home or self-care (01) ==
LOC: ER 13:54 → 1 SOUTH 15:30 → INTOOBSV 15:30
PROVIDERS: ADMIT Internal Medicine; ATTEND Internal Medicine
DX: I69.354 Hemiplegia and hemiparesis following cerebral infarction affecting left non-dominant side (principal); E78.00 Pure hypercholesterolemia, unspecified; E78.5 Hyperlipidemia, unspecified; F32.9 Major depressive disorder, single episode, unspecified; F41.9 Anxiety disorder, unspecified; I10 Essential (primary) hypertension; I25.10 Atherosclerotic heart disease of native coronary artery without angina pectoris; I25.2 Old myocardial infarction; J44.9 Chronic obstructive pulmonary disease, unspecified; K21.9 Gastro-esophageal reflux disease without esophagitis; N41.9 Inflammatory disease of prostate, unspecified; Z90.49 Acquired absence of other specified parts of digestive tract; Z88.8 Allergy status to other drugs, medicaments and biological substances; Z91.018 Allergy to other foods
CPT/HCPCS: 36415; 51702; 70450; 71045; 80048; 80061; 85027; 85610; 85651; 85730; 86140; 93005; 93880; 97162; 99291; 99406; G0378; G0379; J7620